=== PATIENT | female | born 1970 | race Caucasian/White ===

== ENCOUNTER 2018-11-10 12:03 | Outpatient (CLI) | payer OTHER | END 2018-11-10 23:59 | disposition home or self-care (01) | LOC: CFH 12:03 | PROVIDERS: ATTEND Specialist | DX: Z12.31 Encounter for screening mammogram for malignant neoplasm of breast (principal) | CPT/HCPCS: 77067 ==

== ENCOUNTER → 2020-02-23 | Outpatient (CLI) | payer OTHER | END | disposition home or self-care (01) | LOC: CFH 13:35 | PROVIDERS: ATTEND Internal Medicine | DX: I10 Essential (primary) hypertension (principal); R00.2 Palpitations; R60.0 Localized edema; N95.1 Menopausal and female climacteric states | CPT/HCPCS: 93306 ==

== ENCOUNTER 2020-03-12 12:19 | Outpatient (CLI) | payer OTHER | END 2020-03-12 23:59 | disposition home or self-care (01) | LOC: CFH 12:19 | PROVIDERS: ATTEND Internal Medicine Cardiovascular Disease | DX: Z13.6 Encounter for screening for cardiovascular disorders (principal); R06.02 Shortness of breath; R07.89 Other chest pain | CPT/HCPCS: 75571 ==